=== PATIENT | female | born 1995 | race Caucasian/White ===

== ENCOUNTER 2019-03-23 14:43 | Emergency (ER) | payer OTHER, BC ==
[~2019-03-23] VITALS: Ht 175.3 cm; Wt 59.0 kg
[2019-03-23 14:49] VITALS: BP 118/84
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
--- NOTE | 2019-03-23 15:45 | NUR ---
urine collected and sent to lab
--- NOTE | 2019-03-23 17:37 | NUR ---
Patient discharged to home in stable condition. Written and verbal after care instructions given. Patient verbalizes understanding of instruction.
== END 2019-03-23 17:39 | disposition home or self-care (01) ==
LOC: ER 14:43
DX: S06.0X0A Concussion without loss of consciousness, initial encounter (principal); M54.2 Cervicalgia; Z60.2 Problems related to living alone; V49.49XA Driver injured in collision with other motor vehicles in traffic accident, initial encounter; Y93.89 Activity, other specified; Y92.413 State road as the place of occurrence of the external cause; Y99.8 Other external cause status
CPT/HCPCS: 70450-TC; 72125-TC; 84703-TC